=== PATIENT | male | born 2000 | race Caucasian/White ===

== ENCOUNTER 2018-10-09 08:25 | Emergency (ER) | payer SELFPAY | END 2018-10-09 08:53 | disposition other institution (70) | LOC: ED 08:25 | DX: Z02.89 Encounter for other administrative examinations (principal) ==

== ENCOUNTER 2018-10-09 08:25 | Emergency (ER) | payer OTHER ==
[~2018-10-09] VITALS: Ht 175.3 cm; Wt 86.2 kg
[2018-10-09 08:28] VITALS: BP 130/84; Ht 175.3 cm; Wt 86.2 kg
== END 2018-10-09 08:53 | disposition other institution (70) ==
LOC: ED 08:25
DX: Z02.89 Encounter for other administrative examinations (principal)